=== PATIENT | female | born 1990 | race American Indian/Alaskan Native ===

== ENCOUNTER 2016-11-18 22:40 | Emergency (ER) | payer MEDICAID ==
[2016-10-19 12:27] VITALS: BMI 20.5
== END 2016-11-19 00:30 | disposition home or self-care (01) ==
LOC: C.ER 22:40
DX: N76.0 Acute vaginitis (principal)

== ENCOUNTER 2017-01-27 01:11 | Emergency (ER) | payer MEDICAID ==
[2017-01-27 01:12] VITALS: BMI 20.5
[2017-01-27 02:13] LABS: RBC URINE 416 /hpf (0-3); URINE BACTERIA RARE (<OCC); URINE BILIRUBIN NEGATIVE (NEGATIVE); URINE BLOOD 3+ (NEGATIVE); URINE COLOR Yellow (YELLOW); URINE GLUCOSE (UA) NORMAL (Normal); URINE KETONE TRACE mg/dL (NEGATIVE); URINE LEUKOCYTE ESTERASE NEG Leu/uL (Negative); URINE PROTEIN NEGATIVE (NEGATIVE); URINE UROBILINOGEN NORMAL mg/dL (0.2-1.0); WBC URINE 3 /hpf (0-5)
--- NOTE | 2017-01-27 02:25 | C.PDOC ---
History Of Present Illness A 26 y/o female c/o vaginal discharge for 5 days. Pt denies abdominal pain or urine symptoms, fever, chills, nausea, vomiting, vaginal bleeding, dysuria, hematuria, or any other complaints. Pt is not sexually active and was recently treated for UTI a week ago and fully completed the course. Time Seen by Provider: 01/27/17 01:58 Chief Complaint (Nursing): Abdominal Pain History Per: Patient History/Exam Limitations: no limitations Onset/Duration Of Symptoms: Days Current Symptoms Are (Timing): Still Present Severity: Mild Recent travel outside of the [place]: No Additional History Per: Patient Abnormal Vaginal Bleeding: No Past Medical History Reviewed: Historical Data, Nursing Documentation, Vital Signs Vital Signs: Last Vital Signs Temp 97.8 F 01/27/17 02:39 Pulse 78 01/27/17 02:39 Resp 16 01/27/17 02:39 BP 148/80 01/27/17 02:39 Pulse Ox 98 01/27/17 04:55 - Medical History PMH: HTN Surgical History: Tonsillectomy Family History: States: Unknown Family Hx - Social History Hx Tobacco Use: No Hx Alcohol Use: No Hx Substance Use: No - Immunization History Hx Tetanus Toxoid Vaccination: No Hx Influenza Vaccination: Yes Hx Pneumococcal Vaccination: No Review Of Systems Constitutional: Negative for: Fever, Chills Gastrointestinal: Negative for: Nausea, Vomiting, Abdominal Pain Genitourinary: Positive for: Vaginal Discharge. Negative for: Dysuria, Hematuria, Vaginal Bleeding Physical Exam - Physical Exam Appears: Non-toxic, No Acute Distress Skin: Warm, Dry Head: Atraumatic, Normacephalic Eye(s): bilateral: Normal Inspection Cardiovascular: Rhythm Regular, No Murmur Respiratory: Normal Breath Sounds, No Accessory Muscle Use, No Wheezing Gastrointestinal/Abdominal: Soft, No Tenderness Pelvic: No Vaginal Bleeding, Vaginal Discharge (Copious amounts of whitish discharge), No Cervical Motion Tenderness, No Adnexal Tenderness Neurological/Psych: Oriented x3, Normal Speech, Normal Cognition ED Course And Treatment O2 Sat by Pulse Oximetry: 98 (RA) Pulse Ox Interpretation: Normal Progress Note: Impression: 26 y/o female c/o vaginal dishcarge for 5 days. Pt is in no acute distress and this time. Pt was advised to follow up with UNDERGROUND CONDUIT INSTALLER if symptoms continues to persist. Disposition Counseled Patient/Family Regarding: Diagnosis, Need For Followup - Disposition Disposition: HOME/ ROUTINE Disposition Time: 02:24 Condition: STABLE Additional Instructions: Please follow up with UNDERGROUND CONDUIT INSTALLER Take meds as directed Return to ER if worse Prescriptions: Fluconazole [Diflucan] 150 mg PO DAILY #3 tab Metronidazole [Flagyl] 500 mg PO BID #14 tablet Instructions: Bacterial Vaginosis (ED) - Clinical Impression Clinical Impression: Bacterial vaginosis, Candidiasis of genitalia in female - Scribe Statement The provider has reviewed the documentation as recorded by the Scribtiffany hart All medical record entries made by the Giselleibtiffany were at my direction and personally dictated by me. I have reviewed the chart and agree that the record accurately reflects my personal performance of the history, physical exam, medical decision making, and the department course for this patient. I have also personally directed, reviewed, and agree with the discharge instructions and disposition.
[2017-01-27 02:40] VITALS: BP 148/80; PULSE 78; RESP 16; TEMP 97.8
[2017-01-27 04:15] VITALS: O2SAT 98
== END 2017-01-27 02:40 | disposition home or self-care (01) ==
LOC: C.ER 01:11
DX: N76.0 Acute vaginitis (principal); B37.3 Candidiasis of vulva and vagina

== ENCOUNTER 2017-04-26 17:15 | Emergency (ER) | payer MEDICAID ==
[2017-04-26 17:15] VITALS: BMI 20.5
[2017-04-26 18:21] LABS: RBC URINE 325 /hpf (0-3); URINE BACTERIA RARE (<OCC); URINE BILIRUBIN NEGATIVE (NEGATIVE); URINE BLOOD 3+ (NEGATIVE); URINE COLOR Yellow (YELLOW); URINE GLUCOSE (UA) NORMAL (Normal); URINE KETONE NEGATIVE (NEGATIVE); URINE LEUKOCYTE ESTERASE NEG Leu/uL (Negative); URINE PROTEIN NEGATIVE (NEGATIVE); URINE UROBILINOGEN NORMAL mg/dL (0.2-1.0); WBC URINE 2 /hpf (0-5)
[2017-04-26] MEDS ORDERED: cefTRIAXone (Rocephin) 250 mg Inj IM STA (18:21)
--- NOTE | 2017-04-26 18:25 | C.PDOC ---
History Of Present Illness 26 y/o female, whose PMHx includes HTN, presents to the ED for evaluation of vaginal discharge which began around 1 week ago. Patient describes the discharge as white, thick, nonbloody and sour-smelling. Patient admits to increased urinary frequency, a "pressure-like" sensation to her abdomen, and a headache. Patient also reports she has been noncompliant with her blood pressure medication. Otherwise, she denies fever, chills, dysuria, diarrhea, constipation. Time Seen by Provider: 04/26/17 17:42 Chief Complaint (Nursing): Female Genitourinary History Per: Patient History/Exam Limitations: no limitations Onset/Duration Of Symptoms: Other (1 week ) Current Symptoms Are (Timing): Still Present Quality Of Discomfort: Pressure Associated Symptoms: Urinary Symptoms (+increased urinary frequency). denies: Fever, Chills, Diarrhea, Constipation Additional History Per: Patient : 2 Para: 1 Past Medical History Reviewed: Historical Data, Nursing Documentation, Vital Signs Vital Signs: Last Vital Signs Temp 97.7 F 04/26/17 18:34 Pulse 93 H 04/26/17 18:34 Resp 15 04/26/17 18:34 BP 147/97 H 04/26/17 18:34 Pulse Ox 100 04/26/17 23:40 - Medical History PMH: HTN Surgical History: Tonsillectomy Family History: States: Unknown Family Hx - Social History Hx Tobacco Use: No Hx Alcohol Use: No Hx Substance Use: No - Immunization History Hx Tetanus Toxoid Vaccination: No Hx Influenza Vaccination: Yes Hx Pneumococcal Vaccination: No Review Of Systems Constitutional: Negative for: Fever, Chills Gastrointestinal: Positive for: Abdominal Pain (pressure-like sensation ). Negative for: Diarrhea, Constipation Genitourinary: Positive for: Frequency, Vaginal Discharge. Negative for: Dysuria Neurological: Positive for: Headache Physical Exam - Physical Exam Appears: Non-toxic, No Acute Distress Skin: Normal Color, Warm, Dry Head: Atraumatic, Normacephalic Oral Mucosa: Moist Neck: Supple Chest: Symmetrical, No Deformity, No Tenderness Cardiovascular: Rhythm Regular, No Murmur Respiratory: Normal Breath Sounds, No Rales, No Rhonchi, No Wheezing Gastrointestinal/Abdominal: Soft, No Tenderness, No Guarding, No Rebound Back: Normal Inspection Pelvic: No Vaginal Bleeding, Vaginal Discharge (thin, white discharge ), No Cervical Motion Tenderness Extremity: Normal ROM, Capillary Refill (less than 2 seconds ) Neurological/Psych: Oriented x3, Normal Speech, Normal Cognition Gait: Steady ED Course And Treatment O2 Sat by Pulse Oximetry: 100 (on RA) Pulse Ox Interpretation: Normal Progress Note: UA ordered and reviewed. GC/Chlamydia swab ordered and sent to lab for evaluation. Patient received Rocephin IM, Trandate PO, and Zithromax PO. On reassessment, patient is resting comfortably, showing no signs of distress and reports an improvement in her symptoms. Patient is stable for discharge and is advised to f/u with her PRESETTER OPERATOR within 1-2 days for further evaluation. Disposition Counseled Patient/Family Regarding: Diagnosis, Need For Followup, Rx Given - Disposition Referrals: [facility] at [facility] [Outside] Disposition: HOME/ ROUTINE Disposition Time: 18:35 Condition: STABLE Additional Instructions: FOLLOW UP WITH PRESETTER OPERATOR WITHIN 1 WEEK USE MEDICATIONS DIRECTED RETURN TO ER IF SYMPTOMS WORSEN Prescriptions: Fluconazole [Diflucan] 150 mg PO DAILY #2 tab Labetalol [Trandate] 100 mg PO BID #60 tab Metronidazole [Metrogel-Vaginal] 1 ea VG DAILY #5 gel Instructions: Bacterial Vaginosis (ED), Medicine Refill (ED) Forms: [employer] (Maltese) Print Language: POLISH - POA Present On Arrival: None - Clinical Impression Clinical Impression: Bacterial vaginosis, Vaginal discharge - Scribe Statement The provider has reviewed the documentation as recorded by the Scribe (Carmen Jaime) Provider Attestation: All medical record entries made by the Scribe were at my direction and personally dictated by me. I have reviewed the chart and agree that the record accurately reflects my personal performance of the history, physical exam, medical decision making, and the department course for this patient. I have also personally directed, reviewed, and agree with the discharge instructions and disposition.
[2017-04-26 18:35] VITALS: BP 147/97; PULSE 93; RESP 15; TEMP 97.7
[2017-04-26] MEDS ORDERED: cefTRIAXone 250 MG in Lidocaine Hydrochloride 1 ML IM ONE (19:00)
[2017-04-26 23:35] VITALS: O2SAT 100
== END 2017-04-26 18:50 | disposition home or self-care (01) ==
LOC: C.ER 17:15
DX: N76.0 Acute vaginitis (principal); N89.8 Other specified noninflammatory disorders of vagina; I10 Essential (primary) hypertension
CPT/HCPCS: 81001; 84703; 87491; 87591; 96372; 99283; J0696

== ENCOUNTER 2017-04-29 01:16 | Emergency (ER) | payer MEDICAID ==
[2017-04-29 01:17] VITALS: BMI 20.5
[2017-04-29 01:26] VITALS: BP 155/106; TEMP 98.1; O2SAT 98
[2017-04-29 01:31] VITALS: PULSE 93; RESP 20
--- NOTE | 2017-04-29 02:14 | C.PDOC ---
History Of Present Illness 26 year old female who presents to the ER with a complaint of bleeding from the tongue. Patient states she got a piercing on the tip of the tongue ( venom) on Wednesday and took it out on Wednesday because she felt it was too superficial; she notes she was brushing her teeth tonight and nicked the area of where the piercing was. Patient reports she has a Hx of HTN and is due to take her blood pressure medication. No chest pain, headache, dizziness, or SOB. Patient denies use of blood thinners. Time Seen by Provider: 04/29/17 01:55 Chief Complaint (Nursing): Abnormal Skin Integrity History Per: Patient History/Exam Limitations: no limitations Onset/Duration Of Symptoms: Hrs Current Symptoms Are (Timing): Still Present Location Of Injury: Anterior: Mouth (Tongue) Quality Of Symptoms: Other (bleeding) Recent travel outside of the [place]: No Past Medical History Reviewed: Historical Data, Nursing Documentation, Vital Signs Vital Signs: Last Vital Signs Temp 98.1 F 04/29/17 01:27 Pulse 93 H 04/29/17 01:27 Resp 20 04/29/17 01:27 BP 155/106 H 04/29/17 01:27 Pulse Ox 98 04/29/17 02:50 - Medical History PMH: HTN Surgical History: Tonsillectomy Family History: States: Unknown Family Hx - Social History Hx Tobacco Use: No Hx Alcohol Use: No Hx Substance Use: No - Immunization History Hx Tetanus Toxoid Vaccination: No Hx Influenza Vaccination: Yes Hx Pneumococcal Vaccination: No Review Of Systems ENT: Positive for: Other (Tongue bleeding). Negative for: Mouth Swelling, Throat Pain, Throat Swelling Physical Exam - Physical Exam Appears: Non-toxic, No Acute Distress Skin: Normal Color, Warm, Dry Head: Atraumatic, Normacephalic Eye(s): bilateral: Normal Inspection, EOMI Nose: Normal Oral Mucosa: Moist Tongue: Other (Clotting at the tip of the tongue, no active bleeding. Normal piercing at the middle of the tongue- no bleeding or laceration.) Lips: Normal Appearing Teeth: Normal Dentition Gingiva: Normal Appearing Throat: Normal, No Erythema, No Exudate Neck: Normal ROM, Supple Chest: Symmetrical Respiratory: No Accessory Muscle Use Neurological/Psych: Oriented x3, Normal Speech, Normal Cognition ED Course And Treatment O2 Sat by Pulse Oximetry: 98 (Room air) Pulse Ox Interpretation: Normal Progress Note: Patient is currently in no acute distress or pain; will discharge home with instruction to follow up with PMD for further evaluation. Disposition - Disposition Disposition: HOME/ ROUTINE Disposition Time: 02:12 Condition: STABLE Additional Instructions: Follow up with your primary medical doctor or clinic in 2-5 days for further evaluation. Take your blood pressure medication. Return to the emergency department at any time if symptoms persist or worsen. Forms: [facility] (Peruvian), General Discharge Instructions - Clinical Impression Clinical Impression: Hemorrhage of tongue, Encounter for piercing of tongue - Scribe Statement The provider has reviewed the documentation as recorded by the Scribe Pablo Stephen All medical record entries made by the Scribe were at my direction and personally dictated by me. I have reviewed the chart and agree that the record accurately reflects my personal performance of the history, physical exam, medical decision making, and the department course for this patient. I have also personally directed, reviewed, and agree with the discharge instructions and disposition.
== END 2017-04-29 02:15 | disposition home or self-care (01) ==
LOC: C.ER 01:16
DX: K14.8 Other diseases of tongue (principal)

== ENCOUNTER 2017-09-01 15:47 | Emergency (ER) | payer MEDICAID ==
[2017-09-01 15:48] VITALS: BMI 21.2
[2017-09-01 16:06] VITALS: BP 161/109; PULSE 91; RESP 18; TEMP 98.6; O2SAT 100
[2017-09-01 16:35] LABS: HCG,QUALITATIVE URINE NEGATIVE (NEGATIVE)
[2017-09-01 16:38] LABS: SQUAMOUS EPITHIAL 5 /hpf (0-5); URINE BACTERIA RARE (<OCC); URINE BILIRUBIN NEGATIVE (NEGATIVE); URINE BLOOD NEGATIVE (NEGATIVE); URINE CLARITY Clear (Clear); URINE COLOR Yellow (YELLOW); URINE GLUCOSE (UA) NORMAL (Normal); URINE LEUKOCYTE ESTERASE NEG Leu/uL (Negative); URINE NITRATE NEGATIVE (NEGATIVE); URINE PROTEIN NEGATIVE (NEGATIVE); URINE UROBILINOGEN NORMAL mg/dL (0.2-1.0)
--- NOTE | 2017-09-01 16:41 | C.PDOC ---
History Of Present Illness 26yo female, presents to ED for evaluation of white vaginal discharge for the past 2 days. Patient states the discharge is malodorous. She denies any vaginal bleeding, dysuria. She also denies any possibility of an STD. Patient did not take any OTC medications for her symptoms. She has no other medical complaints. Time Seen by Provider: 09/01/17 16:12 Chief Complaint (Nursing): Female Genitourinary History Per: Patient History/Exam Limitations: no limitations Onset/Duration Of Symptoms: Days (2) Current Symptoms Are (Timing): Still Present Associated Symptoms: denies: Urinary Symptoms Abnormal Vaginal Bleeding: No Past Medical History Reviewed: Historical Data, Nursing Documentation, Vital Signs Vital Signs: Last Vital Signs Temp 98.6 F 09/01/17 16:04 Pulse 91 H 09/01/17 16:04 Resp 18 09/01/17 16:04 BP 161/109 H 09/01/17 16:04 Pulse Ox 100 09/01/17 16:45 - Medical History PMH: HTN Surgical History: Tonsillectomy Family History: States: Unknown Family Hx - Social History Hx Tobacco Use: No Hx Alcohol Use: No Hx Substance Use: No - Immunization History Hx Tetanus Toxoid Vaccination: No Hx Influenza Vaccination: Yes Hx Pneumococcal Vaccination: No Review Of Systems Except As Marked, All Systems Reviewed And Found Negative. Genitourinary: Positive for: Vaginal Discharge. Negative for: Dysuria, Vaginal Bleeding Physical Exam - Physical Exam Appears: Well, Non-toxic, No Acute Distress Skin: Normal Color, Warm, Dry, No Rash Head: Atraumatic, Normacephalic Eye(s): bilateral: Normal Inspection Neck: Supple Cardiovascular: Rhythm Regular, No Murmur Respiratory: Normal Breath Sounds, No Wheezing Gastrointestinal/Abdominal: Normal Exam, Bowel Sounds, Soft, No Tenderness Pelvic: Normal External Exam, No Vaginal Bleeding, Vaginal Discharge (thin white discharge no odor), No Cervical Motion Tenderness, No Cervix Open Extremity: Bilateral: Atraumatic, Normal ROM Neurological/Psych: Oriented x3, Normal Speech ED Course And Treatment O2 Sat by Pulse Oximetry: 100 (RA) Pulse Ox Interpretation: Normal Medical Decision Making Medical Decision Making: Patient with vaginal discharge appears consistent with BV. No CMT or pelvic pain on exam. UA ordered and reviewed with normal results. Patient has no fever and in no distress. She is not concerned for STI, will send cultures to lab and call with any positive results. Patient also found to be hypertensive, had not taken her meds today. Prior visits show patient usually hypertensive, not always compliant with her medications. Patient has no headache or other associated complaints. Patient to be discharged home with prescription for vaginal cream. Disposition Counseled Patient/Family Regarding: Diagnosis, Need For Followup, Rx Given - Disposition Referrals: [facility] [Outside] [facility] [Outside] Disposition: HOME/ ROUTINE Disposition Time: 16:41 Condition: GOOD Additional Instructions: Please follow up with your chemical laboratory tester apply vaginal cream nightly for one week Prescriptions: Metronidazole [Metrogel-Vaginal] 0.75 gel VG HS 7 Days #1 gel Instructions: Bacterial Vaginosis (ED) Forms: [employer] (Turkmen) - POA Present On Arrival: None - Clinical Impression Clinical Impression: Bacterial vaginosis - PA / [employer]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 - Scribe Statement The provider has reviewed the documentation as recorded by the Yudelka Staley Provider Scribe Attestation: All medical record entries made by the Giselleibe were at my direction and personally dictated by me. I have reviewed the chart and agree that the record accurately reflects my personal performance of the history, physical exam, medical decision making, and the department course for this patient. I have also personally directed, reviewed, and agree with the discharge instructions and disposition.
== END 2017-09-01 17:10 | disposition home or self-care (01) ==
LOC: C.ER 15:47
DX: N76.0 Acute vaginitis (principal)

== ENCOUNTER 2018-01-04 18:26 | Emergency (ER) | payer MEDICAID ==
[2018-01-04 18:26] VITALS: BMI 21.2
[2018-01-04 18:38] VITALS: BP 152/101; PULSE 84; RESP 18; TEMP 98.2; O2SAT 100
[2018-01-04 19:48] LABS: HCG,QUALITATIVE URINE NEGATIVE (NEGATIVE)
--- NOTE | 2018-01-04 19:48 | C.PDOC ---
History Of Present Illness 27 year old female presents to ED with complaints of urinary frequency and discomfort with urination intermittently for 2 weeks. She reports finishing her menses and noting a non-odorous white discharge. She denies any fever, flank pain, vomiting, hematuria, or concern for STI. Time Seen by Provider: 01/04/18 19:19 Chief Complaint (Nursing): Female Genitourinary History Per: Patient History/Exam Limitations: no limitations Onset/Duration Of Symptoms: Days Current Symptoms Are (Timing): Still Present Quality Of Discomfort: "Pain" Associated Symptoms: Urinary Symptoms Recent travel outside of the [place]: No Additional History Per: Patient Abnormal Vaginal Bleeding: No Past Medical History Reviewed: Historical Data, Nursing Documentation, Vital Signs Vital Signs: Last Vital Signs Temp 98.2 F 01/04/18 18:34 Pulse 84 01/04/18 18:34 Resp 18 01/04/18 18:34 BP 152/101 H 01/04/18 18:34 Pulse Ox 100 01/04/18 20:27 - Medical History PMH: HTN Surgical History: Tonsillectomy Family History: States: Unknown Family Hx - Social History Hx Tobacco Use: No Hx Alcohol Use: No Hx Substance Use: No - Immunization History Hx Tetanus Toxoid Vaccination: No Hx Influenza Vaccination: Yes Hx Pneumococcal Vaccination: No Review Of Systems Constitutional: Negative for: Fever, Chills Gastrointestinal: Negative for: Vomiting, Abdominal Pain Genitourinary: Positive for: Dysuria, Incontinence, Vaginal Discharge Musculoskeletal: Negative for: Back Pain Skin: Negative for: Rash Physical Exam - Physical Exam Appears: Non-toxic, No Acute Distress Skin: Normal Color, Warm, Dry Head: Atraumatic, Normacephalic Eye(s): bilateral: Normal Inspection, EOMI Neck: Supple Chest: Symmetrical Cardiovascular: Rhythm Regular Respiratory: Normal Breath Sounds, No Rales, No Rhonchi, No Wheezing Gastrointestinal/Abdominal: Soft, No Tenderness, No Guarding, No Rebound Back: No CVA Tenderness Extremity: Bilateral: Atraumatic, Normal ROM Neurological/Psych: Oriented x3, Normal Speech Gait: Steady ED Course And Treatment O2 Sat by Pulse Oximetry: 100 (ON RA) Pulse Ox Interpretation: Normal Medical Decision Making Medical Decision Making: Impression: urinary symptoms Plan: Urine analysis and test Progress: UA shows pyuria and leukocytes. Will treat with Bactrim. Culture sent to lab. Patient was hypertensive had not taken second dose of meds Disposition Counseled Patient/Family Regarding: Diagnosis, Need For Followup, Rx Given - Disposition Referrals: Adeline Daniels MD [Medical Doctor] - Disposition: HOME/ ROUTINE Disposition Time: 20:11 Condition: GOOD Additional Instructions: Prescription sent to [facility] Take antibiotic twice daily and be sure to finish taking all of antibiotic. Drink plenty of fluids. 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 - Scribe Statement The provider has reviewed the documentation as recorded by the Scribe Eleno Herrera All medical record entries made by the Scribe were at my direction and personally dictated by me. I have reviewed the chart and agree that the record accurately reflects my personal performance of the history, physical exam, medical decision making, and the department course for this patient. I have also personally directed, reviewed, and agree with the discharge instructions and disposition.
[2018-01-04 19:51] LABS: SQUAMOUS EPITHIAL 2 /hpf (0-5); URINE BILIRUBIN NEGATIVE (NEGATIVE); URINE BLOOD 1+ (NEGATIVE); URINE CLARITY Clear (Clear); URINE COLOR Straw (YELLOW); URINE GLUCOSE (UA) NORMAL (Normal); URINE LEUKOCYTE ESTERASE 3+ Leu/uL (Negative); URINE PROTEIN NEGATIVE (NEGATIVE); URINE UROBILINOGEN NORMAL mg/dL (0.2-1.0)
[2018-01-04] MEDS ORDERED: Tmp-Smz 800 mg-160 mg DS Tab PO STA (20:05)
[2018-01-04] MEDS ORDERED: Tmp-Smz 800 mg-160 mg DS Tab ONE (20:15)
== END 2018-01-04 20:17 | disposition home or self-care (01) ==
LOC: C.ER 18:26
DX: N39.0 Urinary tract infection, site not specified (principal); I10 Essential (primary) hypertension

== ENCOUNTER 2018-01-05 12:25 | Emergency (ER) | payer MEDICAID ==
[2018-01-05 12:25] VITALS: BMI 21.2
[2018-01-05 13:41] LABS: BASO % 0.4 % (0.0-2.0); EOS # 0.1 K/uL (0.0-0.7); EOS % 1.2 % (0.0-4.0); HEMOGLOBIN 13.7 g/dL (11.0-16.0); LYMPH # 0.2 K/uL (1.0-4.3); LYMPH % 2.2 % (20.0-40.0); MEAN CELL VOLUME 90.4 fL (81.0-99.0); MEAN CORPUSCULAR HEMOGLOBIN 30.3 pg (27.0-31.0); MEAN CORPUSCULAR HGB CONC 33.5 g/dL (33.0-37.0); MEAN PLATELET VOLUME 8.6 fL (7.2-11.7); MONO # 0.7 K/uL (0.0-0.8); NEUT # 10.2 K/uL (1.8-7.0); NEUT % 90.2 % (50.0-75.0); PLATELET COUNT 243 K/uL (130-400); RBC 4.53 Mil/uL (3.80-5.20); WHITE BLOOD COUNT 11.3 K/uL (4.8-10.8)
--- NOTE | 2018-01-05 13:48 | C.PDOC ---
History Of Present Illness 27 y/o female w/o significant PMHx presents to ED for evaluation of generalized body aches, back pain and low grade fever since earlier today. Patient was seen at ED yesterday for UTI symptoms and admits "took 1 dose of antibiotics early today with no improvement". Otherwise, Patient denies high fever, headache., neck pain, CP, throat tightness, SOB, palpitation, wheezing, abd. pain, V/D, hematuria, vaginal irritation or discharges. At the time of evaluation, pt is crying, " in pain". Time Seen by Provider: 01/05/18 12:36 Chief Complaint (Nursing): Flu-like Symptoms History Per: Patient History/Exam Limitations: no limitations Onset/Duration Of Symptoms: Days Current Symptoms Are (Timing): Still Present Past Medical History Reviewed: Historical Data, Nursing Documentation, Vital Signs Vital Signs: Last Vital Signs Temp 99.2 F 01/05/18 13:50 Pulse 118 H 01/05/18 12:29 Resp 20 01/05/18 12:29 BP 143/101 H 01/05/18 12:29 Pulse Ox 100 01/05/18 14:31 - Medical History PMH: HTN Surgical History: Tonsillectomy Family History: States: No Known Family Hx - Social History Hx Tobacco Use: No Hx Alcohol Use: No Hx Substance Use: No - Immunization History Hx Tetanus Toxoid Vaccination: No Hx Influenza Vaccination: Yes Hx Pneumococcal Vaccination: No Review Of Systems Except As Marked, All Systems Reviewed And Found Negative. Constitutional: Positive for: Fever, Malaise. Negative for: Chills Eyes: Negative for: Vision Change ENT: Positive for: Nose Discharge, Nose Congestion. Negative for: Ear Discharge , Throat Pain Respiratory: Negative for: Cough, Shortness of Breath, Wheezing Gastrointestinal: Negative for: Nausea, Vomiting, Abdominal Pain, Diarrhea Genitourinary: Positive for: Frequency. Negative for: Hematuria Musculoskeletal: Positive for: Back Pain, Other (generalized body pain) Skin: Negative for: Rash Neurological: Negative for: Weakness, Numbness, Headache, Dizziness Physical Exam - Physical Exam Appears: Well, Non-toxic, No Acute Distress Skin: Warm, Dry, No Rash Head: Normacephalic Eye(s): bilateral: PERRL Nose: Discharge (clear rhinorrhea B/L), No Deformity, No Tenderness Oral Mucosa: Moist, No Drooling Tongue: No Swelling Lips: No Swelling Throat: No Erythema, No Exudate, No Drooling, Other (uvula midline, no edema.) Neck: Trachea Midline Cardiovascular: Rhythm Regular, No Murmur, No JVD Respiratory: No Decreased Breath Sounds, No Accessory Muscle Use, No Rales, No Rhonchi, No Stridor, No Wheezing Gastrointestinal/Abdominal: Soft, Tenderness (suprapubic), No Distention, No Guarding, No Rebound Back: No CVA Tenderness, No Vertebral Tenderness Extremity: Normal ROM, No Pedal Edema, No Swelling Neurological/Psych: Oriented x3, Normal Speech, Normal Cognition ED Course And Treatment - Laboratory Results Result Diagrams: 01/05/18 13:36 01/05/18 13:36 Lab Interpretation: No Acute Changes Urine POC: Negative O2 Sat by Pulse Oximetry: 100 (RA) Pulse Ox Interpretation: Normal Progress Note: Pt ws OBS in Ed for 2.5 hours and reports moderate improvemnet in sx. On re-eval, pt is afebrile, hemodynamicaly stable. Non-toxic. Tolerate Po well in ED. ENT: no acute findings, uvula midline, no edema. Neck: Supple, (-) meningeal sign. Lungs: CTA B/L, BS equal B/L. CVS: (+)S1S2, reg. Abd: soft, NT/ND, (-) guarding, (-) rebound. back: (-) CVA tenderness. Blood work review, no acute abnormalities. UA results review, compare to yesterday results and appears improved. Influenza (-). results review with pt. Pt has clinical findings c/w UTI, viral illness. Pt advised on course of ds, cont. abx as intiated yesterday- Bactrim. ref. to f/u with ped in 2-3 days for re- eval. return if any new changes. Disposition Counseled Patient/Family Regarding: Studies Performed, Diagnosis, Need For Followup, Rx Given - Disposition Referrals: [facility] [Outside] Disposition: HOME/ ROUTINE Disposition Time: 15:02 Condition: STABLE Additional Instructions: Continue antibiotic as initiated yesterday Ibuprofen 400 mg twice daily Encourage fluids Follow up with PMD in 2-3 days for re-evaluation. Return to ED if any worsening or new changes. 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 - Scribe Statement The provider has reviewed the documentation as recorded by the Giselleibtiffany Chino All medical record entries made by the Yudelka were at my direction and personally dictated by me. I have reviewed the chart and agree that the record accurately reflects my personal performance of the history, physical exam, medical decision making, and the department course for this patient. I have also personally directed, reviewed, and agree with the discharge instructions and disposition.
[2018-01-05 13:51] LABS: BLOOD UREA NITROGEN 10 mg/dL (7-17); CALCIUM 9.1 mg/dl (8.6-10.4); GFR AFRICAN-AMERICAN > 60; GFR NON-AFRICAN AMERICAN > 60
[2018-01-05 14:24] LABS: HCG,QUALITATIVE URINE NEGATIVE (NEGATIVE)
[2018-01-05] MEDS ORDERED: Sodium Chloride 0.9% 1,000 ML IV ONE (14:26)
[2018-01-05 14:29] LABS: SQUAMOUS EPITHIAL 3 /hpf (0-5); URINE BACTERIA RARE (<OCC); URINE BILIRUBIN NEGATIVE (NEGATIVE); URINE BLOOD 1+ (NEGATIVE); URINE CLARITY Clear (Clear); URINE COLOR Yellow (YELLOW); URINE GLUCOSE (UA) NORMAL (Normal); URINE LEUKOCYTE ESTERASE 2+ Leu/uL (Negative); URINE PROTEIN NEGATIVE (NEGATIVE); URINE UROBILINOGEN NORMAL mg/dL (0.2-1.0)
[2018-01-05 14:30] LABS: LYMPHOCYTE 1 % (20-40); MONOCYTE 4 % (0-10); NEUTROPHIL 95 % (50-75); TOTAL CELLS COUNTED 100
[2018-01-05 14:31] LABS: PLATELET ESTIMATE NORMAL (NORMAL)
[2018-01-05] MEDS ORDERED: cefTRIAXone IV 1 gm in Dextros 50 ML IVPB ONE (14:33)
[2018-01-05 15:54] VITALS: BP 127/85; PULSE 103; RESP 18; TEMP 99; O2SAT 97
== END 2018-01-05 15:58 | disposition home or self-care (01) ==
LOC: C.ER 12:25
DX: N39.0 Urinary tract infection, site not specified (principal); B34.9 Viral infection, unspecified; I10 Essential (primary) hypertension
CPT/HCPCS: 80048; 81001; 84703; 85025; 87086; 87804; 96365; 99285; J0696; J7040

== ENCOUNTER 2018-04-15 15:50 | Emergency (ER) | payer MEDICAID ==
[2018-04-15 15:50] VITALS: BMI 21.2
[2018-04-15 16:03] VITALS: BP 150/99; PULSE 82; RESP 19; TEMP 98.1; O2SAT 100
[2018-04-15 16:37] LABS: HCG,QUALITATIVE URINE NEGATIVE (NEGATIVE)
[2018-04-15 16:54] LABS: SQUAMOUS EPITHIAL 1 /hpf (0-5); URINE BACTERIA FEW (<OCC); URINE BILIRUBIN NEGATIVE (NEGATIVE); URINE BLOOD 3+ (NEGATIVE); URINE CLARITY Hazy (Clear); URINE COLOR Yellow (YELLOW); URINE GLUCOSE (UA) NORMAL (Normal); URINE LEUKOCYTE ESTERASE 2+ Leu/uL (Negative); URINE PROTEIN NEGATIVE (NEGATIVE); URINE UROBILINOGEN NORMAL mg/dL (0.2-1.0)
--- NOTE | 2018-04-15 17:39 | C.PDOC ---
History Of Present Illness 27 year old female presents to the ER with a complaint of dysuria for the past few days. She reports she is currently on her menses but has a Hx of UTI and states it feels similar to that. Denies fever, chills, abdominal pain, nausea or vomiting. Patient is also requesting a refill of her amlodipine 10mg, she states she has not been able to get in contact with her doctor for a refill. Time Seen by Provider: 04/15/18 16:21 Chief Complaint (Nursing): Female Genitourinary History Per: Patient History/Exam Limitations: no limitations Onset/Duration Of Symptoms: Days Current Symptoms Are (Timing): Still Present Quality Of Discomfort: Unable To Describe Associated Symptoms: Urinary Symptoms (Dysuria). denies: Fever, Nausea, Vomiting Alleviating Factors: None Recent travel outside of the [place]: No Abnormal Vaginal Bleeding: No Past Medical History Reviewed: Historical Data, Nursing Documentation, Vital Signs Vital Signs: Last Vital Signs Temp 98.1 F 04/15/18 15:55 Pulse 82 04/15/18 15:55 Resp 19 04/15/18 15:55 BP 150/99 H 04/15/18 15:55 Pulse Ox 100 04/15/18 17:39 - Medical History PMH: HTN Surgical History: Tonsillectomy Family History: States: Unknown Family Hx - Social History Hx Tobacco Use: No Hx Alcohol Use: Yes Hx Substance Use: No - Immunization History Hx Tetanus Toxoid Vaccination: No Hx Influenza Vaccination: Yes Hx Pneumococcal Vaccination: No Review Of Systems Constitutional: Negative for: Fever, Chills Respiratory: Negative for: Cough, Shortness of Breath Gastrointestinal: Negative for: Nausea, Vomiting, Abdominal Pain Genitourinary: Positive for: Dysuria Physical Exam - Physical Exam Appears: Non-toxic Skin: Normal Color, Warm, Dry Head: Atraumatic, Normacephalic Eye(s): bilateral: Normal Inspection Oral Mucosa: Moist Neck: Normal, Supple Chest: Symmetrical, No Tenderness Cardiovascular: Rhythm Regular Respiratory: Normal Breath Sounds, No Rales, No Rhonchi, No Wheezing Gastrointestinal/Abdominal: Soft, No Tenderness Neurological/Psych: Oriented x3, Normal Speech ED Course And Treatment O2 Sat by Pulse Oximetry: 100 (Room air) Pulse Ox Interpretation: Normal Medical Decision Making Medical Decision Making: Urinalysis ordered, results were positive for UTI, will start on antibiotics and advise to follow up with PMD, Rx for blood pressure medication given. Disposition - Disposition Referrals: Cliff Goins MD [Staff Provider] - Mani Blanco MD [Staff Provider] - Carolee Davidson MD [Staff Provider] - Disposition: HOME/ ROUTINE Disposition Time: 17:36 Condition: STABLE Additional Instructions: Follow up with the medical doctor within 1-2 days, return if worsened. Prescriptions: amLODIPine [Norvasc] 10 mg PO DAILY #30 tab Ciprofloxacin [Cipro] 1 tab PO BID #14 tab Phenazopyridine HCl [Pyridium] 200 mg PO TID #7 tablet Instructions: Urinary Tract Infections in Adults Forms: [employer] (Serbian) - Clinical Impression Clinical Impression: UTI (urinary tract infection) - PA / LECTURER [employer] PORTUGUESE / 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 - Scribe Statement The provider has reviewed the documentation as recorded by the Scribe Pablo Stephen All medical record entries made by the Giselleibtiffany were at my direction and personally dictated by me. I have reviewed the chart and agree that the record accurately reflects my personal performance of the history, physical exam, medical decision making, and the department course for this patient. I have also personally directed, reviewed, and agree with the discharge instructions and disposition.
== END 2018-04-15 17:49 | disposition home or self-care (01) ==
LOC: C.ER 15:50
DX: N39.0 Urinary tract infection, site not specified (principal)

== ENCOUNTER 2018-06-01 13:16 | Emergency (ER) | payer MEDICAID ==
[2018-06-01 13:17] VITALS: BMI 21.2
[2018-06-01 13:29] VITALS: RESP 18; TEMP 97.8
[2018-06-01] MEDS ORDERED: cefTRIAXone (Rocephin) 250 mg Inj IM STA (13:57)
[2018-06-01 14:01] LABS: HCG,QUALITATIVE URINE NEGATIVE (NEGATIVE)
[2018-06-01 14:06] LABS: SQUAMOUS EPITHIAL 5 /hpf (0-5); URINE BILIRUBIN NEGATIVE (NEGATIVE); URINE BLOOD NEGATIVE (NEGATIVE); URINE CLARITY Clear (Clear); URINE COLOR Yellow (YELLOW); URINE GLUCOSE (UA) NORMAL (Normal); URINE LEUKOCYTE ESTERASE NEG Leu/uL (Negative); URINE PROTEIN NEGATIVE (NEGATIVE); URINE UROBILINOGEN NORMAL mg/dL (0.2-1.0)
--- NOTE | 2018-06-01 14:15 | C.PDOC ---
History Of Present Illness 27 y/o female presents to ED with c/o vaginal discharge and pelvic "pressure" for 2 weeks. Patient states she was diagnosed with UTI last month and symptoms started shortly after. Patient admits to being sexually active and is requesting testing and treatments for STDs. Patient admits to urinary frequency. Denies dysuria, vaginal itching, fever, back pain, abdominal pain, nausea, vomiting or any other complaints at this time. Time Seen by Provider: 06/01/18 13:32 Chief Complaint (Nursing): Female Genitourinary History Per: Patient History/Exam Limitations: no limitations Onset/Duration Of Symptoms: Days Current Symptoms Are (Timing): Still Present Past Medical History Reviewed: Historical Data, Nursing Documentation, Vital Signs Vital Signs: Last Vital Signs Temp 97.8 F 06/01/18 13:24 Pulse 94 H 06/01/18 13:24 Resp 18 06/01/18 13:24 BP 134/90 06/01/18 13:24 Pulse Ox 97 06/01/18 13:24 - Medical History PMH: HTN Surgical History: Tonsillectomy Family History: States: No Known Family Hx - Social History Hx Tobacco Use: No Hx Alcohol Use: Yes Hx Substance Use: No - Immunization History Hx Tetanus Toxoid Vaccination: No Hx Influenza Vaccination: Yes Hx Pneumococcal Vaccination: No Review Of Systems Constitutional: Negative for: Fever, Chills Genitourinary: Positive for: Frequency, Vaginal Discharge, Pelvic Pain. Negative for: Dysuria, Hematuria, Vaginal Bleeding Skin: Negative for: Rash Physical Exam - Physical Exam Appears: Non-toxic, No Acute Distress Skin: Warm, Dry, No Rash Head: Atraumatic, Normacephalic Eye(s): bilateral: Normal Inspection, EOMI Nose: Normal Oral Mucosa: Moist Neck: Normal ROM, Supple Chest: Symmetrical Cardiovascular: Rhythm Regular Respiratory: Normal Breath Sounds, No Accessory Muscle Use, No Rales, No Rhonchi, No Wheezing Gastrointestinal/Abdominal: Soft, Tenderness (Suprapubic), No Guarding, No Rebound Back: No CVA Tenderness, No Vertebral Tenderness Pelvic: Normal External Exam, No Vaginal Bleeding, Vaginal Discharge ((+) white thick discharge, no clumping), No Cervical Motion Tenderness, No Adnexal Tenderness Neurological/Psych: Oriented x3, Normal Speech, Normal Cognition ED Course And Treatment O2 Sat by Pulse Oximetry: 97 (RA) Pulse Ox Interpretation: Normal Progress Note: Azithromycin and Rocephin administered. Patient discharged and instructed to follow up with [facility] in 1-2 days. Disposition - Disposition Disposition: HOME/ ROUTINE Disposition Time: 14:09 Condition: STABLE Additional Instructions: Follow up with PMD in 1-2 days. Return to ER if symptoms persist or worsen. Prescriptions: Metronidazole [Metrogel] 1 appful PV HS #5 gel..gram. Instructions: Bacterial Vaginosis (DC) Forms: [employer] (Cook Islander) - Clinical Impression Clinical Impression: Bacterial vaginosis - PA / DIRECTOR BUSINESS SYSTEMS / 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 - Scribe Statement The provider has reviewed the documentation as recorded by the Scribtiffany Chino All medical record entries made by the Scribe were at my direction and personally dictated by me. I have reviewed the chart and agree that the record accurately reflects my personal performance of the history, physical exam, medical decision making, and the department course for this patient. I have also personally directed, reviewed, and agree with the discharge instructions and disposition.
[2018-06-01 14:39] VITALS: BP 131/89; PULSE 90
[2018-06-01 20:20] VITALS: O2SAT 97
== END 2018-06-01 14:38 | disposition home or self-care (01) ==
LOC: C.ER 13:16
DX: N76.0 Acute vaginitis (principal)
CPT/HCPCS: 81001; 84703; 87086; 87491; 87591; 96372; 99284; J0696

== ENCOUNTER 2019-01-10 17:52 | Emergency (ER) | payer MEDICAID ==
[2019-01-10 17:52] VITALS: BMI 21.2
[2019-01-10 18:11] VITALS: TEMP 98.3
--- NOTE | 2019-01-10 18:22 | C.PDOC ---
History Of Present Illness 28 year old female presents to ED with complaint of white vaginal discharge for the past 2 weeks. Patient is concerned that she may have bacterial vaginosis. Patient is sexually active and monogamous. She states that the discharge is foul smelling and white. She also notes that her blood pressure is elevated. Patient has a PMHx of hypertension. She ran out of her hypertension medication and is requesting a refill for her Amlodipine 5mg daily. She denies pelvic pain, abdominal pain, nausea, vomiting, fever, hematuria, dysuria, headache, chest pain, dizziness, and weakness. No other complaints at this time. Time Seen by Provider: 01/10/19 18:20 Chief Complaint (Nursing): Female Genitourinary History Per: Patient History/Exam Limitations: no limitations Onset/Duration Of Symptoms: Other (2 weeks) Current Symptoms Are (Timing): Still Present Associated Symptoms: Other (vaginal discharge). denies: Fever, Chills, Nausea, Vomiting, Urinary Symptoms Abnormal Vaginal Bleeding: No Past Medical History Reviewed: Historical Data, Nursing Documentation, Vital Signs Vital Signs: Last Vital Signs Temp 98.3 F 01/10/19 18:07 Pulse 83 01/10/19 18:07 Resp 18 01/10/19 18:07 BP 171/106 H 01/10/19 18:07 Pulse Ox 100 01/10/19 18:07 Primary Care Provider: Gage Delarosa - Medical History PMH: HTN Surgical History: Tonsillectomy Family History: States: Unknown Family Hx - Social History Hx Tobacco Use: No Hx Alcohol Use: Yes Hx Substance Use: No - Immunization History Hx Tetanus Toxoid Vaccination: No Hx Influenza Vaccination: Yes Hx Pneumococcal Vaccination: No Review Of Systems Except As Marked, All Systems Reviewed And Found Negative. Constitutional: Positive for: Other (elevated blood pressure) Genitourinary: Positive for: Vaginal Discharge (white) Physical Exam - Physical Exam Appears: Non-toxic, No Acute Distress Skin: Normal Color, Warm, Dry Head: Atraumatic, Normacephalic Eye(s): bilateral: Normal Inspection Oral Mucosa: Moist Neck: Normal ROM, Supple Chest: Symmetrical, No Deformity Cardiovascular: Rhythm Regular, No Murmur Respiratory: Normal Breath Sounds, No Accessory Muscle Use, No Rales, No Rhonchi, No Wheezing Gastrointestinal/Abdominal: Bowel Sounds (normoactive), Soft, No Tenderness Back: No CVA Tenderness, No Decreased ROM Pelvic: Normal Bimanual Exam, No Vaginal Bleeding, Vaginal Discharge (light, thin and white), No Cervical Motion Tenderness, No Adnexal Tenderness Extremity: Capillary Refill (<2 seconds) Extremity: Bilateral: Atraumatic Neurological/Psych: Oriented x3, Normal Speech, Normal Cognition Gait: Steady ED Course And Treatment O2 Sat by Pulse Oximetry: 100 (in RA) Pulse Ox Interpretation: Normal Medical Decision Making Medical Decision Making: Impression: 28 year old female presents to ED with complaint of white vaginal discharge for the past 2 weeks. Initial Plan: U-preg UA Chlamydia/GC Diflucan PO Norvasc PO Will treat for BV and cover for possible candidia with diflucan PO x 1. Rx for clindamycin vaginal prescribed. Advised to follow-up closley with her per diem clerk. BP improved with norvasc. Instructed patient to follow-up with her PMD for any further medication refills. Well appearing. Nontoxic. Will wait for GC/C culture to result - patient does not want presumptive tx. Will return with any worsening symptoms. Disposition Counseled Patient/Family Regarding: Studies Performed, Diagnosis, Need For Followup, Rx Given - Disposition Referrals: Eugenio Mendoza MD [Non-Staff] - FAMILY PROVIDER,NO [Family Provider] - Disposition: HOME/ ROUTINE Disposition Time: 19:50 Condition: GOOD Additional Instructions: Follow-up with your PMD and per diem clerk. Return if symptoms worsen or persist. Prescriptions: amLODIPine [Norvasc] 5 mg PO DAILY #14 tab Clindamycin 2% 1 applic VG DAILY 7 Days #7 tube Instructions: Bacterial Vaginosis Forms: [employer] (Marshallese) Print Language: WELSH - Clinical Impression Clinical Impression: Bacterial vaginosis, Medication refill - PA / GUN [employer]BER / 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 (Cherelle Nogueira) - Scribe Statement The provider has reviewed the documentation as recorded by the Scribe (Cherelle Nogueira) All medical record entries made by the Scribe were at my direction and personally dictated by me. I have reviewed the chart and agree that the record accurately reflects my personal performance of the history, physical exam, medical decision making, and the department course for this patient. I have also personally directed, reviewed, and agree with the discharge instructions and disposition.
[2019-01-10 19:32] LABS: SQUAMOUS EPITHIAL 5 /hpf (0-5); URINE BILIRUBIN NEGATIVE (NEGATIVE); URINE BLOOD NEGATIVE (NEGATIVE); URINE CLARITY Hazy (Clear); URINE COLOR Yellow (YELLOW); URINE GLUCOSE (UA) NORMAL (Normal); URINE LEUKOCYTE ESTERASE TRACE Leu/uL (Negative); URINE PROTEIN NEGATIVE (NEGATIVE); URINE UROBILINOGEN NORMAL mg/dL (0.2-1.0)
[2019-01-10 20:00] VITALS: BP 160/104; PULSE 87; RESP 16
[2019-01-10 20:43] VITALS: O2SAT 100
== END 2019-01-10 20:14 | disposition home or self-care (01) ==
LOC: C.ER 17:52
DX: Z76.0 Encounter for issue of repeat prescription (principal); N76.0 Acute vaginitis; B96.89 Other specified bacterial agents as the cause of diseases classified elsewhere; I10 Essential (primary) hypertension